=== PATIENT | female | born 1960 | race Caucasian/White ===

== ENCOUNTER 2017-01-13 12:38 | Emergency (ER) | payer BC ==
[~2017-01-13] VITALS: Ht 175.3 cm; Wt 83.9 kg
[2017-01-13] MEDS ORDERED: METO-272 (12:57)
[2017-01-13] MEDS ORDERED: LEVO75TA6 (12:57)
[2017-01-13] MEDS ORDERED: ESCI20TA45 (12:57)
[2017-01-13] MEDS ORDERED: TRIA10.8 NS (12:58)
[2017-01-13] MEDS ORDERED: fentaNYL INJECTION 100 MCG/2 ML AMP IVP ONE ×2 (13:00→14:45)
[2017-01-13] MEDS ORDERED: cloNIDine 0.1 MG (CATAPRES) TAB PO ONE (13:00)
--- NOTE | 2017-01-13 13:03 | ED Headache ---
General Chief Complaint: Head/Cervical Problems Stated Complaint: PAIN IN TOP OF HEAD/NECK Nursing Triage Note: pt states she has had sharp head and next pain since yesterday. she had a really bad headache thursday and took aleve and advil yesterday. Nursing Sepsis Screen: No Definite Risk Source: patient Exam Limitations: no limitations History of Present Illness Time seen by provider: 13:01 Initial Comments To ER with an occipital/parietal headache starts in the midline. This began yesterday and has been quite intense. She took Tylenol and Aleve without relief. No nausea or vomiting. No vision changes. She has a history of headaches infrequently but never one like this before. This began slowly and progressed throughout the day. No history of DVT and she is not on estrogen, no recent illness. Blood pressure on arrival 212/120 Heart rate 67. Timing/Duration: 1 week Severity/Quality: moderate Location: occipital, parietal Prior Headaches/Recent Trauma: occasional headaches Associated Symptoms: No confusion, No fatigue, No facial pain, No fever/chills , No flushing, No loss of consciousness, No nausea/vomiting, No nasal congestion , No nasal drainage, No numbness in legs/feet, No rash, No sinus infection, No stiff neck, No vision changes, No weakness Allergies and Home Medications Allergies Coded Allergies: No Known Drug Allergies (Unverified , 01/13/17) Home Medications Escitalopram Oxalate 20 Mg Tablet, #30 (Reported) Levothyroxine Sodium 75 Mcg Tablet, #90 (Reported) Metoprolol Succinate 50 Mg Tab.er.24h, #90 (Reported) Triamcinolone Acetonide 10.8 Ml Mcdaniels, 10.8 ML NS DAILY, (Reported) Constitutional: see HPI Eyes: No Symptoms Reported Ears, Nose, Mouth, Throat: no symptoms reported Respiratory: no symptoms reported Cardiovascular: no symptoms reported Genitourinary: no symptoms reported Musculoskeletal: no symptoms reported Skin: no symptoms reported Psychiatric/Neurological: See HPI, Headache Past Vybnugt-Peaqhx-Pqqtyp Hx Patient Social History Alcohol Use: Occasionally Uses Recreational Drug Use: No Smoking Status: Never a Smoker 2nd Hand Smoke Exposure: No Recent Foreign Travel: No Contact w/Someone Who Travel: No Recent Infectious Disease Expo: No Recent Hopitalizations: No Seasonal Allergies Seasonal Allergies: No Surgeries HX Surgeries: Yes Surgeries: Section Respiratory Hx Respiratory Disorders: No Cardiovascular Hx Cardiac Disorders: Yes Cardiac Disorders: Hypertension Neurological Hx Neurological Disorders: No Reproductive System Hx Reproductive Disorders: No Genitourinary Hx Genitourinary Disorders: No Gastrointestinal Hx Gastrointestinal Disorders: No Musculoskeletal Hx Musculoskeletal Disorders: No Endocrine Hx Endocrine Disorders: Yes Endocrine Disorders: Hypothyroidsim HEENT HX ENT Disorders: No Cancer Hx Cancer: No Psychosocial Hx Psychiatric Problems: No Integumentary HX Skin/Integumentary Disorder: No Blood Transfusions Hx Blood Disorders: No Physical Exam Vital Signs Vital Sign - Last 12Hours 01/13/17 12:42 Temp 97.7 Pulse 65 Resp 16 B/P (MAP) 208/114 Pulse Ox 98 Capillary Refill : Less Than 3 Seconds General Appearance: WD/WN, no apparent distress HEENT: PERRL/EOMI, normal ENT inspection, other (extraocular muscles are intact. Pupils are equal round react to light and accommodate. She denies any vision changes. There is no ptosis) Neck: non-tender, full range of motion Cardiovascular: regular rate, rhythm, no murmur Respiratory: no respiratory distress, no accessory muscle use Gastrointestinal: normal bowel sounds, non tender, soft Extremities: normal range of motion, non-tender Psychiatric: alert, oriented x 3 Crainal Nerves: normal hearing, normal speech Skin: normal color, warm/dry Progress/Results/Core Measures Results/Orders Lab Results Laboratory Tests Test 01/13/17 13:05 Range/Units White Blood Count 7.5 4.3-11.0 10^3/uL Red Blood Count 4.88 4.35-5.85 10^6/uL Hemoglobin 14.0 11.5-16.0 G/DL Hematocrit 43 35-52 % Mean Corpuscular Volume 87 80-99 FL Mean Corpuscular Hemoglobin 29 25-34 PG Mean Corpuscular Hemoglobin Concent 33 32-36 G/DL Red Cell Distribution Width 14.7 H 10.0-14.5 % Platelet Count 193 130-400 10^3/uL Mean Platelet Volume 11.3 H 7.4-10.4 FL Neutrophils (%) (Auto) 73 42-75 % Lymphocytes (%) (Auto) 19 12-44 % Monocytes (%) (Auto) 7 0-12 % Eosinophils (%) (Auto) 1 0-10 % Basophils (%) (Auto) 0 0-10 % Neutrophils # (Auto) 5.5 1.8-7.8 X 10^3 Lymphocytes # (Auto) 1.4 1.0-4.0 X 10^3 Monocytes # (Auto) 0.5 0.0-1.0 X 10^3 Eosinophils # (Auto) 0.1 0.0-0.3 10^3/uL Basophils # (Auto) 0.0 0.0-0.1 10^3/uL Sodium Level 140 135-145 MMOL/L Potassium Level 3.5 L 3.6-5.0 MMOL/L Chloride Level 103 98-107 MMOL/L Carbon Dioxide Level 27 21-32 MMOL/L Anion Gap 10 5-14 MMOL/L Blood Urea Nitrogen 12 7-18 MG/DL Creatinine 0.85 0.60-1.30 MG/DL Estimat Glomerular Filtration Rate > 60 BUN/Creatinine Ratio 14 Glucose Level 98 70-105 MG/DL Calcium Level 9.5 8.5-10.1 MG/DL My Orders Orders - JOANNA GLEASON APRN Saline Lock/Iv-Start (01/13/17 12:53) Ct Head Wo (01/13/17 12:53) Cbc With Automated Diff (01/13/17 12:53) Basic Metabolic Panel (01/13/17 12:53) Clonidine Tablet (Catapres Tablet) (01/13/17 13:00) Fentanyl Injection (Sublimaze Injection (01/13/17 13:00) Ketorolac Injection (Toradol Injection) (01/13/17 14:00) Diphenhydramine Injection (Benadryl Inje (01/13/17 14:00) Ns Iv 1000 Ml (Sodium Chloride 0.9%) (01/13/17 14:00) Fentanyl Injection (Sublimaze Injection (01/13/17 14:45) Medications Given in ED Current Medications Medications Dose Ordered Sig/Francine Route Start Time Stop Time Status Last Admin Dose Admin Clonidine HCl 0.1 mg ONCE ONCE PO 01/13/17 13:00 01/13/17 13:01 DC 01/13/17 13:08 0.1 MG Diphenhydramine HCl 25 mg ONCE ONCE IVP 01/13/17 14:00 01/13/17 14:01 DC 01/13/17 14:14 25 MG Fentanyl Citrate 50 mcg ONCE ONCE IVP 01/13/17 13:00 01/13/17 13:01 DC 01/13/17 13:09 50 MCG Ketorolac Tromethamine 30 mg ONCE ONCE IVP 01/13/17 14:00 01/13/17 14:01 DC 01/13/17 14:14 30 MG Vital Signs/I&O Vital Sign - Last 12Hours 01/13/17 12:42 Temp 97.7 Pulse 65 Resp 16 B/P (MAP) 208/114 Pulse Ox 98 Blood Pressure Mean: 145 Diagnostic Imaging Diagonstic Imaging: CT Plain Films/CT/US/NM/MRI: head Comments NAME: [facility] REC#: [id number] PT STATUS: REG ER : 1960 PHYSICIAN: JOANNA GLEASON APRN ADMIT DATE: 01/13/17/ER Draft Date of Exam:01/13/17 CT HEAD WO PROCEDURE: CT head without contrast. TECHNIQUE: Multiple contiguous axial images were obtained through the brain without the use of intravenous contrast. INDICATION: Headache x2 days. FINDINGS: The ventricles are normal in size, shape, and position. There are no masses or hemorrhages. There are no extra-axial fluid collections. IMPRESSION: Negative CT head. Dictated on workstation # [id number] Dict: 01/13/17 1331 Trans: 01/13/17 1333 [id number] Interpreted by: VALERIE ENG Electronically signed by: Departure Communication Progress Notes 1352-blood pressure is down to 176/92. Patient rates her headache at a 5 out of 10 after the fentanyl. It was 7 out of 10 on arrival. I will now give Toradol, Benadryl and a liter of saline. 1444-blood pressure is down to 143/93. Patient rates the headache at 3 out of 10. Impression Impression: Primary Impression: Hypertensive urgency Disposition: 01 HOME, SELF-CARE Condition: Stable Departure-Patient Inst. Decision time for Depature: 14:54 Referrals: WALLY CHAND DO (PCP/Family) Primary Care Physician Patient Instructions: Headache, Adult (DC) Add. Discharge Instructions: 1. Return to ER for any concerns such as recurrent or worsening headache or significantly elevated blood pressure as you had today. 2. Follow-up with your doctor next week for recheck 3. All discharge instructions reviewed with patient and/or family. Voiced understanding. Copy Copies To 1: WALLY CHAND PETER J APRN Jan 13, 2017 13:03
[2017-01-13 13:13] LABS: BASOPHILS % (AUTO) 0 % (0-10); EOSINOPHILS # (AUTO) 0.1 10^3/uL (0.0-0.3); EOSINOPHILS % (AUTO) 1 % (0-10); LYMPHOCYTES # (AUTO) 1.4 X 10^3 (1.0-4.0); LYMPHOCYTES % (AUTO) 19 % (12-44); MEAN CORPUSCULAR HEMOGLOBIN 29 PG (25-34); MEAN CORPUSCULAR HGB CONC 33 G/DL (32-36); MEAN CORPUSCULAR VOLUME 87 FL (80-99); MEAN PLATELET VOLUME 11.3 FL (7.4-10.4); MONOCYTES # (AUTO) 0.5 X 10^3 (0.0-1.0); MONOCYTES % (AUTO) 7 % (0-12); NEUTROPHILS # (AUTO) 5.5 X 10^3 (1.8-7.8); NEUTROPHILS % (AUTO) 73 % (42-75); PLATELET COUNT 193 10^3/uL (130-400); RED BLOOD COUNT 4.88 10^6/uL (4.35-5.85); RED CELL DISTRIBUTION WIDTH 14.7 % (10.0-14.5); WHITE BLOOD COUNT 7.5 10^3/uL (4.3-11.0)
--- NOTE | 2017-01-13 13:33 | Diagnostic Imaging Report ---
PROCEDURE: CT head without contrast. TECHNIQUE: Multiple contiguous axial images were obtained through the brain without the use of intravenous contrast. INDICATION: Headache x2 days. FINDINGS: The ventricles are normal in size, shape, and position. There are no masses or hemorrhages. There are no extra-axial fluid collections. IMPRESSION: Negative CT head. Dictated by: Dictated on workstation # [id number]
[2017-01-13 13:34] LABS: ANION GAP 10 MMOL/L (5-14); BLOOD UREA NITROGEN 12 MG/DL (7-18); BUN/CREATININE RATIO 14; CALCIUM 9.5 MG/DL (8.5-10.1); CARBON DIOXIDE 27 MMOL/L (21-32); CHLORIDE 103 MMOL/L (98-107); CREATININE SERUM 0.85 MG/DL (0.60-1.30); GFR ESTIMATED > 60; GLUCOSE 98 MG/DL (70-105); POTASSIUM 3.5 MMOL/L (3.6-5.0); SODIUM 140 MMOL/L (135-145)
[2017-01-13] MEDS ORDERED: KETOROLAC 30 MG/ML VIAL IVP ONE (14:00)
[2017-01-13] MEDS ORDERED: diphenhydrAMINE 50 MG/ML INJ (BENADRYL) IVP ONE (14:00)
[2017-01-13] MEDS ORDERED: NS IV 1000 ML 1,000 ML IV SCH (14:00)
[2017-01-13 15:15] VITALS: BP 154/93
== END 2017-01-13 15:15 | disposition home or self-care (01) ==
LOC: EDUNIT# 12:38 → ER 12:41
DX: I16.0 Hypertensive urgency (principal); Z79.899 Other long term (current) drug therapy
CPT/HCPCS: 36415; 70450; 80048; 85025; 96361; 96374; 96375; 96376

== ENCOUNTER 2017-02-17 13:45 | Outpatient (RCR) | payer BC ==
[~2017-02-17 13:45] MED LIST: ESCI20TA45; LEVO75TA6; METO-272; TRIA10.8 NS
== END 2017-02-17 14:28 | disposition home or self-care (01) ==
PROVIDERS: ATTEND Family Medicine
DX: M54.2 Cervicalgia (principal); M54.81 Occipital neuralgia

== ENCOUNTER → 2017-08-12 | Outpatient (CLI) | payer BC ==
[~2017-08-12] MED LIST changes: -METO-272; +METO-370
--- NOTE | 2017-08-12 19:25 | Diagnostic Imaging Report ---
EXAMINATION: Bilateral diagnostic mammogram with tomography evaluation. INDICATION: History of fibrocystic disease. COMPARISON: 02/28/16. The current study was also evaluated with a Computer Aided Detection (CAD) system. FINDINGS: The breasts are composed of heterogeneously dense parenchyma which may decrease mammographic sensitivity. No mass, architectural distortion or suspicious calcification is seen. IMPRESSION: No mammographic evidence of malignancy. Ultrasound evaluation pending. ACR BI-RADS Category 0: Incomplete. (Needs additional imaging evaluation). Result letter will be mailed to the patient. Note: At least 10% of breast cancer is not imaged by mammography. Dictated on workstation # [id number]
--- NOTE | 2017-08-12 19:33 | Diagnostic Imaging Report ---
EXAMINATION: Left breast ultrasound. INDICATION: History of breast cysts. FINDINGS: The four quadrants and subareolar region of the left breast was scanned with no suspicious solid mass identified. At 1 o'clock periareolar region there is a 1.2 cm simple cyst seen. IMPRESSION: No suspicious or solid mass is identified. Annual screening mammograms recommended. ACR BI-RADS Category 1: Negative. Result letter will be mailed to the patient. Note: At least 10% of breast cancer is not imaged by mammography. Dictated on workstation # [id number]
== END ==
LOC: RAD 14:03
PROVIDERS: ATTEND Family Medicine
DX: N64.59 Other signs and symptoms in breast (principal); Z87.42 Personal history of other diseases of the female genital tract
CPT/HCPCS: 76641; 77066

== ENCOUNTER → 2017-12-18 | Outpatient (CLI) | payer BC ==
--- NOTE | 2017-12-18 11:26 | Diagnostic Imaging Report ---
PROCEDURE: US Thyroid. TECHNIQUE: Multiple real-time grayscale images were obtained of the thyroid in various projections. INDICATION: Right neck fullness. FINDINGS: The right lobe of the thyroid measures 4.7 x 1.3 x 1.4 cm and the left lobe measures 4.2 x 0.9 x 1.4 cm. There continues to be homogeneous echotexture of the thyroid, similar to study from 01/27/2014. No discrete thyroid mass is identified. No enlarged nodes are detected. IMPRESSION: Unremarkable thyroid ultrasound. Dictated by: Dictated on workstation # [id number]
== END ==
LOC: RAD 10:55
PROVIDERS: ATTEND Nurse Practitioner Family
DX: E07.89 Other specified disorders of thyroid (principal)
CPT/HCPCS: 76536

== ENCOUNTER → 2018-09-06 | Outpatient (CLI) | payer BC ==
--- NOTE | 2018-09-06 09:07 | Diagnostic Imaging Report ---
Indication: Routine screening. Comparison is made with prior mammogram from 08/12/2017 and 02/28/2016. 2-D and 3-D bilateral screening mammography was performed with CAD. Both breasts are heterogeneously dense, limiting the sensitivity of mammography. There is a tiny circumscribed nodular density in the outer portion of the right breast posterior depth. This is not well seen on MLO view. Additional views are recommended. Left breast unremarkable. No suspicious microcalcifications are seen. Axillae are unremarkable. Impression: BI-RADS 0 Right breast density. Additional views are recommended for further evaluation. ACR BI-RADS Category 0: Incomplete. (Needs additional imaging evaluation). Result letter will be mailed to the patient. Note: At least 10% of breast cancer is not imaged by mammography. Dictated by: Dictated on workstation # [id number]
== END ==
LOC: RAD 07:23
PROVIDERS: ATTEND Family Medicine
DX: Z12.31 Encounter for screening mammogram for malignant neoplasm of breast (principal); R92.8 Other abnormal and inconclusive findings on diagnostic imaging of breast
CPT/HCPCS: 77067

== ENCOUNTER → 2018-09-17 | Outpatient (CLI) | payer BC ==
--- NOTE | 2018-09-17 20:52 | Diagnostic Imaging Report ---
INDICATION: Right breast density. COMPARISON: Correlation is made with screening mammogram from 09/06/2018 and diagnostic mammogram from earlier today. EXAMINATION: Sonographic interrogation of the outer right breast was performed. FINDINGS: There is a tiny cyst at the 9 o'clock location of the right breast, 8 cm from the nipple, measuring approximately 5 mm x 3 mm. A retroareolar cyst measures approximately 4 mm in size. Cyst at the 10 o'clock location, 2 cm from the nipple, measures approximate 5 mm. No solid masses are seen. IMPRESSION: Multiple right breast cysts, likely accounting for the mammographic density. The patient may return to routine annual screening mammography. ACR BI-RADS Category 2: Benign findings. Result letter will be mailed to the patient. Note: At least 10% of breast cancer is not imaged by mammography. Dictated on workstation # [id number]
--- NOTE | 2018-09-17 20:52 | Diagnostic Imaging Report ---
INDICATION: Right breast density. Patient presents for additional views. COMPARISON: Correlation was made with recent screening study from 09/06/2018. EXAMINATION: Unilateral right 2D and 3D diagnostic mammography was performed including spot compression CC, rolled CC and conventional 90 degree lateral views. FINDINGS: Additional view shows a tiny, approximately 4 mm, circumscribed nodular density in the outer right breast. This was only seen on the CC views. This is approximately 7 cm from the nipple. No other masses or suspicious calcifications are seen. IMPRESSION: Tiny circumscribed nodule in outer right breast, 7 cm from the nipple. Further evaluation with ultrasound is recommended and will be performed today. ACR BI-RADS Category 0: Incomplete. (Needs additional imaging evaluation). Result letter will be mailed to the patient. Note: At least 10% of breast cancer is not imaged by mammography. Dictated on workstation # [id number]
== END ==
LOC: RAD 13:58
PROVIDERS: ATTEND Family Medicine
DX: N60.01 Solitary cyst of right breast (principal)

== ENCOUNTER 2019-05-05 05:51 | Outpatient (CLI) | payer BC ==
[~2019-05-05] VITALS: Ht 175.3 cm; Wt 83.9 kg
[2019-05-05] MEDS ORDERED: TRIA10.8 NS (15:44)
[2019-05-05] MEDS ORDERED: LEVO75TA6 PO (15:44)
[2019-05-05] MEDS ORDERED: OLME40TA18 PO (15:44)
[2019-05-05] MEDS ORDERED: METO-370 PO (15:44)
[2019-05-05] MEDS ORDERED: ESCI20TA45 PO (15:44)
== END 2019-05-05 15:47 | disposition home or self-care (01) ==
LOC: PREOP 05:51
PROVIDERS: ATTEND Surgery
DX: Z01.818 Encounter for other preprocedural examination (principal)

== ENCOUNTER 2019-05-10 07:55 | Day surgery (SDC) | payer BC ==
[~2019-05-10] VITALS: Ht 175.3 cm; Wt 83.9 kg
[2019-05-10] VITALS (9 sets, daily range): BP systolic 95–140; BP diastolic 55–101
[~2019-05-10 07:55] MED LIST changes: +ESCI20TA45 PO; +LEVO75TA6 PO; +METO-370 PO; +OLME40TA18 PO
[2019-05-10] MEDS ORDERED: LACTATED RINGERS 1,000 ML IV ONE (08:13)
[2019-05-10] MEDS ORDERED: LACTATED RINGERS 1,000 ML IV STA (08:16)
[2019-05-10] MEDS ORDERED: PROPOFOL INJECTION 50 ML IV ONE (08:56)
--- NOTE | 2019-05-10 09:26 | Progress Note-Post Operative ---
Post-Operative Progess Note Surgeon (s)/Human Resources Hr Generalist (s) Surgeon FELIX HORNER DO Human Resources Hr Generalist: na Pre-Operative Diagnosis screening colon Post-Operative Diagnosis int hemorrhoids Procedure & Operative Findings Date of Procedure 05/10/19 Procedure Performed/Findings colonoscopy Anesthesia Type per sponsorship coordinator Estimated Blood Loss Estimated blood loss (mL): none Specimens/Packing Specimens Removed na FELIX HORNER DO May 10, 2019 09:26
--- NOTE | 2019-05-10 09:28 | Discharge Inst-Simple/Standard ---
Discharge Inst-Standard Discharge Medications New, Converted or Re-Newed RX: RX on Chart Patient Instructions/Follow Up Plan of Care/Instructions/FU: repeat colonoscopy in 10 years unless family history of colon cancer which would be 5 years. any issues before that be seen at that time. Activity as Tolerated: Yes Discharge Diet: Regular Diet (high fiber) FELIX HORNER DO May 10, 2019 09:28
--- NOTE | 2019-05-10 12:41 | OPERATIVE REPORT ---
DATE OF SERVICE: 05/10/2019 PREOPERATIVE DIAGNOSIS: Screening colonoscopy. POSTOPERATIVE DIAGNOSIS: Internal hemorrhoids. PROCEDURE: Colonoscopy. SURGEON: Felix Mckoy DO. ANESTHESIA: Per [employer] UPHOLSTERER. ESTIMATED BLOOD LOSS: None. COMPLICATIONS: None. INDICATIONS: The patient is a 58-year-old female due for screening colonoscopy. She understands risks and benefits of the procedure and wished to proceed with procedure. Consent was signed in the chart. DESCRIPTION OF PROCEDURE: The patient was taken to the endoscopy suite and placed in the left lateral recumbent position. Timeout was performed. Digital rectal exam was performed. There were no palpable polyps, masses or ulcerations. Slight internal hemorrhoids present. Scope was inserted in the rectum, advanced all the way to the cecum with minimal difficulty. Prep was adequate. The terminal ileum was intubated with normal appearance. Scope was retracted back into the colon and began to be retracted. There were no polyps, masses or ulcerations in the cecum, ascending, transverse, descending and sigmoid colon. Once in the rectum, scope was retroflexed noting some slight internal hemorrhoids. No other pathology. Scope was returned to its normal position, slowly withdrawn until completely removed. The patient tolerated the procedure well without any complications. She was taken to recovery room in stable condition. RECOMMENDATIONS: The patient will need repeat colonoscopy in 10 years unless family history of colon cancer, which will be then be 5 years. Any issues before that, she should be reevaluated at that time. Job ID: [id number] DocumentID: [id number] Dictated Date: 05/10/2019 09:30:18 Piano Mover Date: 05/10/2019 12:40:30 Dictated By: FELIX MCKOY DO
== END 2019-05-10 10:22 | disposition home or self-care (01) ==
LOC: ENDO 07:55
PROVIDERS: ATTEND Surgery
DX: Z12.11 Encounter for screening for malignant neoplasm of colon (principal); K64.8 Other hemorrhoids; I10 Essential (primary) hypertension; F41.9 Anxiety disorder, unspecified; Z79.899 Other long term (current) drug therapy

== ENCOUNTER → 2019-09-08 | Outpatient (CLI) | payer BC ==
--- NOTE | 2019-09-08 09:50 | Diagnostic Imaging Report ---
INDICATION: Routine screening. COMPARISON is made with prior mammograms from 09/06/2018 and 08/12/2017. 2-D and 3-D bilateral screening mammography was performed with CAD. Both breasts are heterogeneously dense, limiting the sensitivity of mammography. Circumscribed densities in the outer right breast appear stable. No dominant mass or malignant appearing microcalcifications are seen. Axillae are unremarkable. IMPRESSION: BI-RADS Category 2 No mammographic features suspicious for malignancy are identified. Dictated by: Dictated on workstation # [id number]
== END ==
LOC: RAD 07:31
PROVIDERS: ATTEND Family Medicine
DX: Z12.31 Encounter for screening mammogram for malignant neoplasm of breast (principal)
CPT/HCPCS: 77067

== ENCOUNTER → 2019-09-16 | Outpatient (CLI) | payer BC ==
--- NOTE | 2019-09-16 16:02 | Diagnostic Imaging Report ---
PROCEDURE: CT maxillofacial without contrast. TECHNIQUE: Multiple contiguous axial images were obtained through the facial bones without the use of intravenous contrast. Auto Exposure Controls were utilized during the CT exam to meet ALARA standards for radiation dose reduction. INDICATION: Facial swelling and headaches. COMPARISON: CT head of 01/13/2017. FINDINGS: Paranasal sinuses: The bilateral frontal, ethmoid, maxillary, and sphenoid sinuses are clear. Specifically, there are no air-fluid levels or mucosal thickening. Sinus drainage pathways: The bilateral ostiomeatal units are widely patent. Frontal recesses are clear on both sides. The sphenoethmoidal recesses are also widely patent on both sides. Nasal cavity: The osseous nasal septum is at midline without significant deviation. No abnormal mucosal thickening within the nasal cavity. Orbits: Globes are symmetric. Bilateral cataract surgery has been performed. No retrobulbar inflammation. Other: No space-occupying mass or hydrocephalus within the visualized aspects of the brain. No skull fracture or concerning focal osseous lesion. IMPRESSION: 1. Normal paranasal sinuses. 2. No abnormality to account for patient's facial swelling. Dictated by: Dictated on workstation # [id number]
== END ==
LOC: RAD 14:27
PROVIDERS: ATTEND Nurse Practitioner Family
DX: R51 Headache (principal); R22.0 Localized swelling, mass and lump, head
CPT/HCPCS: 70486

== ENCOUNTER → 2019-10-07 | Outpatient (CLI) | payer BC ==
[~2019-10-07] MED LIST changes: +GADOBUTROL 10 MMOL/10 ML (GADAVIST) VIAL IV ONE; -METO-370; -METO-370 PO; +METO50TA7; +METO50TA7 PO
[2019-10-07 13:26] LABS: BUN/CREATININE RATIO 15; CREATININE SERUM 0.81 MG/DL (0.60-1.30); GFR ESTIMATED > 60
--- NOTE | 2019-10-07 15:29 | Diagnostic Imaging Report ---
INDICATION: Left facial pain and swelling and left hearing loss. TECHNIQUE: Pre- and post-intravenous contrast multiplanar, multisequence imaging of the brain and IACs was performed. COMPARISON: No prior studies are available for comparison. FINDINGS: Ventricles and sulci are within normal limits. There are multiple subcortical white matter signal abnormalities on FLAIR imaging, likely on the basis of chronic microvascular ischemia. No diffusion restriction is seen to suggest acute ischemia. The normal expected flow-voids within the carotid siphons are seen. No acute intra-axial or extra-axial hemorrhage is detected. No abnormal enhancement following contrast administration is identified. Corpus callosum is unremarkable. The sella and parasellar structures are unremarkable. Thin slice imaging through the IACs demonstrate the seventh and eighth nerve complexes to be unremarkable. No cerebellopontine angle mass is detected. Trigeminal nerves are unremarkable bilaterally. IMPRESSION: Changes of chronic microvascular ischemia. The study is otherwise unremarkable. Dictated by: Dictated on workstation # [id number]
== END ==
LOC: RAD 12:45
PROVIDERS: ATTEND Family Medicine
DX: R51 Headache (principal); R22.0 Localized swelling, mass and lump, head; R20.0 Anesthesia of skin
CPT/HCPCS: 36415; 70553; 82565; 84520

== ENCOUNTER 2020-05-27 09:59 | Emergency (ER) | payer BC ==
[~2020-05-27] VITALS: Ht 175.2 cm; Wt 81.8 kg
[~2020-05-27 09:59] MED LIST changes: -GADOBUTROL 10 MMOL/10 ML (GADAVIST) VIAL IV ONE
[2020-05-27] MEDS ORDERED: diphenhydrAMINE 25 MG TAB (BENADRYL) PO ONE (10:15)
[2020-05-27] MEDS ORDERED: FAMOTIDINE 20 MG (PEPCID) TABLET PO ONE (10:15)
[2020-05-27] MEDS ORDERED: LORATADINE (CLARITIN) 10 MG TAB PO ONE (10:15)
--- NOTE | 2020-05-27 10:23 | ED General ---
General Chief Complaint: Allergic Reaction Stated Complaint: ALLERGIC REACTION Source of Information: Patient, EMS, [facility] Records Exam Limitations: No Limitations History of Present Illness Date Seen by Provider: May 27, 2020 Time Seen by Provider: 10:03 Initial Comments Patient presents to ER by private conveyance from home with chief complaint of itching over her upper extremities trunk and swelling on her face. She's been having problems with hives for the past several days and went to Dr. Robledo's office and got two steroid shots. She also has used Benadryl with her last dose being last night. Her swelling in her mouth and face started at 8:00 last night. She's had no difficulty swallowing fluids wheezing stridor or shortness of air. No history of anaphylaxis. No history of allergies to any medications foods or environment. She started a new cholesterol medicine a month ago and has continued it. No shellfish or other new foods or items that she is aware of. No fever cough shortness of air nausea vomiting diarrhea. Allergies and Home Medications Allergies Coded Allergies: No Known Drug Allergies (Verified , 05/10/19) Home Medications Escitalopram Oxalate 20 Mg Tablet, 20 MG PO DAILY, (Reported) Levothyroxine Sodium 75 Mcg Tablet, 75 MCG PO DAILY, (Reported) Metoprolol Succinate 50 Mg Tab.er.24h, 50 MG PO DAILY, (Reported) Olmesartan Medoxomil 40 Mg Tablet, 40 MG PO DAILY, (Reported) Triamcinolone Acetonide 10.8 Ml [place], 10.8 ML NS DAILY, (Reported) Patient Home Medication List Home Medication List Reviewed: Yes Review of Systems Review of Systems Constitutional: No chills, No fever EENTM: see HPI; No ear discharge, No ear pain Respiratory: No cough, No short of breath Cardiovascular: No chest pain, No edema Gastrointestinal: No abdominal pain, No nausea, No vomiting Immunological/Allergic: see HPI All Other Systems Reviewed Negative Unless Noted: Yes Past Hlwezqb-Uwukjv-Xkycpt Hx Patient Social History Alcohol Use: Denies Use Recreational Drug Use: No Smoking Status: Never a Smoker 2nd Hand Smoke Exposure: No Recent Foreign Travel: No Contact w/Someone Who Travel: No Recent Hopitalizations: No Immunizations Up To Date Date of Influenza Vaccine: Jun 28, 2018 Seasonal Allergies Seasonal Allergies: No Past Medical History Surgeries: Yes (CS X2, FINGERS) Section Respiratory: No Cardiac: Yes Hypertension Neurological: No Reproductive Disorders: No Sexually Transmitted Disease: No HIV/AIDS: No Genitourinary: No Gastrointestinal: No Musculoskeletal: No Endocrine: Yes Hypothyroidsim HEENT: Yes (GLASSES) Loss of Vision: Denies Hearing Impairment: Denies Cancer: No Psychosocial: Yes Anxiety Integumentary: No Blood Disorders: No Adverse Reaction/Blood Tranf: No (N/A) Physical Exam Vital Signs Vital Signs - First Documented 05/27/20 09:59 Temp 36.3 Pulse 74 Resp 18 B/P (MAP) 137/77 (97) O2 Delivery Room Air Capillary Refill : Height, Weight, BMI Height: 5'9.00" Weight: 185lbs. 0.0oz. 83.327418ku; 27.3 BMI Method:Stated General Appearance: No Apparent Distress, WD/WN Eyes: Bilateral Eye Normal Inspection, Bilateral Eye PERRL, Bilateral Eye EOMI HEENT: PERRL/EOMI, TMs Normal, Normal ENT Inspection, Moist Mucous Membranes, Other (swelling of the soft tissues bilateral upper and lower lips. Tongue, uvula and retropharynx not involved with edema. No injection or exudate.) Neck: Full Range of Motion, Normal Inspection, Non Tender, Supple Respiratory: Lungs Clear, Normal Breath Sounds, No Accessory Muscle Use, No Re spiratory Distress Cardiovascular: Regular Rate, Rhythm, No Edema Gastrointestinal: Normal Bowel Sounds, Non Tender, Soft Extremity: Normal Capillary Refill, Normal Inspection, No Pedal Edema Neurologic/Psychiatric: Alert, Oriented x3, No Motor/Sensory Deficits, Normal Mood/Affect Skin: Normal Color, Warm/Dry Progress/Results/Core Measures Suspected Sepsis SIRS Temperature: Pulse: Respiratory Rate: Blood Pressure / Mean: Results/Orders My Orders Orders - CRISTÓBAL MATHEWS Loratadine Tablet (Claritin Tablet) (05/27/20 10:15) Diphenhydramine Tablet (Benadryl Tablet) (05/27/20 10:15) Famotidine Tablet (Pepcid Tablet) (05/27/20 10:15) Medications Given in ED Current Medications Medications Dose Ordered Sig/Francine Route Start Time Stop Time Status Last Admin Dose Admin Diphenhydramine HCl 50 mg ONCE ONCE PO 05/27/20 10:15 05/27/20 10:16 DC 9/6/20 10:19 50 MG Famotidine 20 mg ONCE ONCE PO 05/27/20 10:15 05/27/20 10:16 DC 05/27/20 10:20 20 MG Loratadine 10 mg ONCE ONCE PO 05/27/20 10:15 05/27/20 10:16 DC 05/27/20 10:20 10 MG Vital Signs/I&O 05/27/20 09:59 Temp 36.3 Pulse 74 Resp 18 B/P (MAP) 137/77 (97) O2 Delivery Room Air Capillary Refill : Progress Note #1: Time: 10:21 Progress Note No impending airway collapse or acute distress. Plan to add antihistamine blockade and observe for short while. His been going on since 8:00 last night and has not progressed anaphylaxis. Vital signs are normal. She is on an ARB but not on ANABELLE inhibitor. We may suggest she discontinue this medication for a few weeks and follow up with primary care. Progress Note #2: Time: 11:35 Progress Note Patient says her itching is better however she does have a few hives left and her angioedema has not changed. She's not having any worsening airway. She has no acute distress. We did discuss sending her home with a epinephrine autoinjector and to continue the histamine blockade. Follow-up in a couple weeks with Dr. Robledo. Discontinue use of the ARB. Departure Impression Primary Impression: Allergic reaction Qualified Codes: T78.40XA - Allergy, unspecified, initial encounter Additional Impression: Angioedema of lips Qualified Codes: T78.3XXA - Angioneurotic edema, initial encounter Disposition: 01 HOME, SELF-CARE Condition: Stable Departure-Patient Inst. Decision time for Depature: 11:28 Referrals: WALLY ROBLEDO DO (PCP/Family) Primary Care Physician Patient Instructions: Angioedema (DC) Add. Discharge Instructions: Stop using Olmesartan until you have discussed this with your primary care doctor. Continue taking Claritin, Zyrtec or Jenifer 10 mg daily for itching and hives. Benadryl 1-2 tablets every 6 hours as necessary for itching. Pepcid 20 mg twice a day as necessary for itching. If you start to have difficulty swallowing your secretions, your tongue is swelling worse or you have difficulty breathing then you should give yourself the epinephrine autoinjector once every 15 minutes as necessary on your way to the emergency room. Follow-up with your primary care doctor in 1-2 weeks. All discharge instructions reviewed with patient and/or family. Voiced understanding. Scripts Epinephrine (Epipen 2-Gama) 0.3 Mg/0.3 Ml Auto.injct 0.3 MG IJ Q15M PRN for anaphylaxis, #1 EA 0 Refills Prov: CRISTÓBAL MATHEWS 05/27/20 CRISTÓBAL MATHEWS May 27, 2020 10:23
[2020-05-27 11:09] VITALS: BP 117/71
[2020-05-27] MEDS ORDERED: EPIN0.3P3 IJ (11:41)
== END 2020-05-27 12:06 | disposition home or self-care (01) ==
LOC: EDUNIT# 09:59 → ER 10:00
DX: T78.3XXA Angioneurotic edema, initial encounter (principal); T78.40XA Allergy, unspecified, initial encounter; I10 Essential (primary) hypertension; E03.9 Hypothyroidism, unspecified; F41.9 Anxiety disorder, unspecified; Z79.890 Hormone replacement therapy
CPT/HCPCS: 99283

== ENCOUNTER → 2020-09-10 | Outpatient (CLI) | payer BC ==
[~2020-09-10] MED LIST changes: +EPIN0.3P3 IJ
--- NOTE | 2020-09-10 12:30 | Diagnostic Imaging Report ---
INDICATION: Routine screening. COMPARISON: 09/08/2019 and 09/06/2018. TECHNIQUE: 2D and 3D bilateral screening mammography was performed with CAD. FINDINGS: Both breasts are heterogeneously dense, limiting the sensitivity of mammography. The small circumscribed density in the right breast is stable. No new mass or malignant appearing microcalcifications are seen. The axillae are unremarkable. IMPRESSION: No mammographic features suspicious for malignancy are identified. ACR BI-RADS Category 2: Benign findings. Result letter will be mailed to the patient. Note: At least 10% of breast cancer is not imaged by mammography. Dictated by: Dictated on workstation # [id number]
== END ==
LOC: RAD 09:00
PROVIDERS: ATTEND Family Medicine
DX: Z12.31 Encounter for screening mammogram for malignant neoplasm of breast (principal)
CPT/HCPCS: 77063; 77067

== ENCOUNTER → 2021-09-11 | Outpatient (CLI) | payer BC ==
[~2021-09-11] MED LIST changes: +ESCI20TA39; +ESCI20TA39 PO; -ESCI20TA45; -ESCI20TA45 PO
--- NOTE | 2021-09-11 11:35 | Diagnostic Imaging Report ---
INDICATION: Routine screening. COMPARISON: 09/10/2020 and 09/08/2019. TECHNIQUE: 2D and 3D bilateral screening mammography was performed with CAD. FINDINGS: Both breasts are heterogeneously dense, limiting the sensitivity of mammography. The parenchymal pattern is stable. No dominant mass or malignant-appearing microcalcifications are seen. Benign-appearing nodules in the right breast are stable. The axillae are unremarkable. IMPRESSION: No mammographic features suspicious for malignancy are identified. ACR BI-RADS Category 2: Benign findings. Result letter will be mailed to the patient. Note: At least 10% of breast cancer is not imaged by mammography. Dictated by: Dictated on workstation # [id number]
== END ==
LOC: RAD 10:30
PROVIDERS: ATTEND Family Medicine
DX: Z12.31 Encounter for screening mammogram for malignant neoplasm of breast (principal)
CPT/HCPCS: 77063; 77067

== ENCOUNTER → 2022-09-19 | Outpatient (CLI) | payer BC, OTHER ==
--- NOTE | 2022-09-19 10:17 | Diagnostic Imaging Report ---
Indication: Routine screening. Comparison is made with prior mammograms from 09/11/2021 and 09/10/2020. 2-D and 3-D bilateral screening mammography was performed with CAD. Both breasts are heterogeneously dense, limiting the sensitivity of mammography. The parenchymal pattern is stable. No mass or malignant-appearing microcalcifications are seen. Axillae are unremarkable. IMPRESSION: BI-RADS Category 1 No mammographic features suspicious for malignancy are identified. ACR BI-RADS Category 1: Negative. Result letter will be mailed to the patient. Note: At least 10% of breast cancer is not imaged by mammography. Dictated by: Dictated on workstation # [id number]
== END ==
LOC: RAD 08:17
PROVIDERS: ATTEND Nurse Practitioner Family
DX: Z12.31 Encounter for screening mammogram for malignant neoplasm of breast (principal)
CPT/HCPCS: 77063; 77067